=== PATIENT | female | born 1990 | race Caucasian/White ===

== ENCOUNTER 2021-08-20 09:55 | Inpatient (IN) ==
[2021-08-20] MEDS ORDERED: miSOPROStoL 25 MCG TABLET VG PRN (10:01)
[2021-08-20] MEDS ORDERED: Famotidine 20 MG/2 ML VIAL IVP PRN (10:02)
[2021-08-20] MEDS ORDERED: Metoclopramide 10 MG/2 ML VIAL IVP PRN (10:02)
[2021-08-20] MEDS ORDERED: Lidocaine 1% 20 ML MDV INFILT PRN (10:06)
[2021-08-20] MEDS ORDERED: Ondansetron 4 MG/2 ML VIAL IVP PRN (10:06)
[2021-08-20] MEDS ORDERED: Azithromycin 500 MG in 0.9 % Sodium Chloride 250 ML IVPB PRN (10:06)
[2021-08-20] MEDS ORDERED: *HR* Nalbuphine 10 MG/ML AMPUL IV PRN (10:06)
[2021-08-20] MEDS ORDERED: Ringers Solution, Lactated 1,000 ML IVC SCH (10:15)
[2021-08-20 10:58] LABS: Basophils % 0.3 %; Eosinophils # 0.1 K/mcL (0.0-0.6); Eosinophils % 1.3 %; Hematocrit 31.6 % (35.3-44.9); Hemoglobin 10.7 g/dL (11.5-15.4); Immature Granulocytes % 0.7 % (0-4); Lymphocytes # 1.6 K/mcL (0.6-4.6); Lymphocytes % 14.8 %; Mean Corpuscular HGB Conc 33.9 g/dL (31.6-35.5); Mean Corpuscular Hemoglobin 33.4 pg (28.0-33.3); Mean Corpuscular Volume 98.8 fL (83.0-100.0); Mean Platelet Volume 11.1 fL (9.4-12.4); Monocytes # 0.7 K/mcL (0.0-1.3); Monocytes % 6.1 %; Neutrophils # 8.2 K/mcL (1.6-8.9); Platelet Count 218 K/mcL (140-400); Red Cell Distribution Width 14.6 % (11.5-14.5); Segmented Neutrophils % 76.8 %; White Blood Count 10.6 K/mcL (4.3-11.1)
[2021-08-20] MEDS ORDERED: *HR* FentaNYL (PF) 100 MCG/2 ML VIAL EP ONE (11:02)
[2021-08-20] MEDS ORDERED: EPHEDrine 50 MG/ML VIAL IVP PRN (11:02)
[2021-08-20] MEDS ORDERED: Ropivacaine/PF 0.2% 20 ML VIAL EP ONE (11:02)
[2021-08-20 11:08] LABS: Amphetamine Screen,Urine Negative ng/mL (Cutoff=1000); Barbiturate Screen,Urine Negative ng/mL (Cutoff=200); Benzodiazepines Screen,Urine Negative ng/mL (Cutoff=200); Cannabinoid Screen,Urine Positive ng/mL (Cutoff = 50); Cocaine Screen,Urine Negative ng/mL (Cutoff= 300); Opiate Screen,Urine Negative ng/mL (Cutoff=300); Phencyclidine Screen,Urine Negative ng/mL (Cutoff=25)
[2021-08-20] MEDS ORDERED: Epidural Premix (fent/bupiv) 110 ML EP SCH (11:15)
[2021-08-20 11:31] LABS: Influenza A PCR Negative (Negative); Influenza B PCR Negative (Negative); Resp. Syncytial Virus PCR Negative (Negative)
[2021-08-20 11:38] LABS: SARS-CoV-2 by PCR (In House) Negative (Negative)
[2021-08-20] MEDS ORDERED: Ropivacaine/PF 0.2% 20 ML VIAL ONE (12:42)
[2021-08-20] MEDS ORDERED: *HR* FentaNYL (PF) 100 MCG/2 ML VIAL ONE (12:42)
[2021-08-20] MEDS ORDERED: *HR* Ropivacaine/PF 0.5% 20 ML VIAL ONE (16:30)
[2021-08-20] MEDS ORDERED: Oxytocin 30 UNIT/503 ML BAG IVC ONE (18:22)
[2021-08-20] MEDS ORDERED: Benzocaine/Menthol 56 GM AEROSOL SPRAY TP PRN (20:57)
[2021-08-20] MEDS ORDERED: Oxytocin 30 UNIT/503 ML BAG IVC SCH (20:57)
[2021-08-20] MEDS ORDERED: Rho Immune Globulin 1,500 UNIT SYRINGE IM PRN (20:57)
[2021-08-20] MEDS ORDERED: Ondansetron ODT 4 MG TAB.RAPDIS SL PRN (20:57)
[2021-08-20] MEDS ORDERED: Lanolin 7 G OINT...G. TP PRN (20:57)
[2021-08-20] MEDS ORDERED: *HR* OxyCODONE Immed Rel 5 MG TABLET PO PRN (20:57)
[2021-08-20] MEDS: Acetaminophen 325 MG TABLET PO SCH (21:06)
[2021-08-20 21:57] VITALS: O2SAT 97
[2021-08-20] MEDS: Ibuprofen 600 MG TABLET PO SCH (22:00)
[2021-08-21 03:56] LABS: Basophils % 0.2 %; Eosinophils # 0.1 K/mcL (0.0-0.6); Eosinophils % 0.6 %; Hematocrit 28.6 % (35.3-44.9); Hemoglobin 9.7 g/dL (11.5-15.4); Immature Granulocytes % 0.5 % (0-4); Lymphocytes % 9.9 %; Mean Corpuscular HGB Conc 33.9 g/dL (31.6-35.5); Mean Corpuscular Volume 100.4 fL (83.0-100.0); Mean Platelet Volume 10.9 fL (9.4-12.4); Monocytes # 1.2 K/mcL (0.0-1.3); Monocytes % 5.9 %; Neutrophils # 16.9 K/mcL (1.6-8.9); Platelet Count 183 K/mcL (140-400); Red Blood Count 2.85 M/mcL (3.82-4.97); Red Cell Distribution Width 14.6 % (11.5-14.5); Segmented Neutrophils % 82.9 %; White Blood Count 20.4 K/mcL (4.3-11.1)
[2021-08-21] MEDS: Ibuprofen 600 MG TABLET PO SCH ×2 (04:00→08:03)
[2021-08-21] MEDS: Acetaminophen 325 MG TABLET PO SCH ×2 (06:28→08:04)
[2021-08-21 07:21] VITALS: PULSE 56
[2021-08-21] MEDS ORDERED: Prenatal Vit/FA 1 EACH TABLET PO SCH (09:00)
[2021-08-21 16:33] VITALS: BP 115/68; TEMP 97.6
== END 2021-08-21 19:12 | disposition home or self-care (01) | DRG 560 ==
LOC: 1NENULAB 09:55 → 1NENUOBS 20:57
PROVIDERS: ADMIT Obstetrics & Gynecology; ATTEND Obstetrics & Gynecology